=== PATIENT | male | born 1945 | race Two or more races ===

== ENCOUNTER 2017-11-16 17:32 | Outpatient (CLI) | END 2017-11-16 17:33 | disposition home or self-care (01) | LOC: NONPT 17:32 | PROVIDERS: ATTEND Internal Medicine | DX: I25.119 Atherosclerotic heart disease of native coronary artery with unspecified angina pectoris (principal); I11.0 Hypertensive heart disease with heart failure; I50.9 Heart failure, unspecified | CPT/HCPCS: 80048 ==